=== PATIENT | male | born 1940 | race Caucasian/White ===

== ENCOUNTER 2023-10-30 14:27 | Day surgery (SDC) | payer MEDICARE, BC ==
[2023-10-30] MEDS ORDERED: Depo-Medrol 40 MG/ML IM ONE (14:28)
[2023-10-30] MEDS ORDERED: BUPIVACAINE 0.5% VIAL IJ ONE (14:28)
[2023-10-30] MEDS ORDERED: Lactated Ringers 1,000 ML IV ONE (17:07)
[2023-10-30] MEDS ORDERED: DIPRIVAN 200 MG/20 ML IV ONE (17:36)
--- NOTE | 2023-10-30 20:20 | XRAY ---
Indication: Bilateral SI joint injection Intraoperative fluoroscopy provided for 28 seconds. 6 digital spot image submitted for interpretation demonstrates posterior needle tip projecting over the left and right SI joint. Small amount of contrast injected for needle tip placement. Correlate with intraoperative findings/report. Incidental incompletely visualized bilateral lumbosacral fusion hardware.
--- NOTE | 2023-10-31 09:37 | XRAY ---
28 seconds of fluoroscopy was used in surgery for a bilateral sacroiliac joint injection.
== END 2023-10-30 18:05 | disposition home or self-care (01) ==
LOC: SDC-PAIN 14:27
PROVIDERS: ATTEND Psychiatry & Neurology Pain Medicine
DX: M46.1 Sacroiliitis, not elsewhere classified (principal)
CPT/HCPCS: 01992; 27096; 72202; 77002; 99100; G0260; J1030; J2704; Q9966

== ENCOUNTER 2024-01-16 11:37 | Day surgery (SDC) | payer MEDICARE, BC ==
[2024-01-16] MEDS ORDERED: Depo-Medrol 40 MG/ML IM ONE (11:38)
[2024-01-16] MEDS ORDERED: LIDOCAINE HCL 2% 100 MG/5 ML IJ ONE (11:38)
[2024-01-16] MEDS ORDERED: DIPRIVAN 200 MG/20 ML IV ONE (13:10)
[2024-01-16] MEDS ORDERED: Lactated Ringers 1,000 ML IV ONE (13:49)
--- NOTE | 2024-01-16 13:49 | XRAY ---
Indication: Bilateral L1-L3 MBB. Intraoperative fluoroscopy provided for 8 seconds. Single digital spot image submitted for interpretation demonstrates posterior needle tips projecting over the expected left and right L1-L3 nerve roots. Correlate with intraoperative findings/report. Incidental incompletely visualized multilevel lumbar fusion hardware
--- NOTE | 2024-01-16 14:32 | XRAY ---
8 seconds of fluoroscopy was used in surgery for a bilateral L1-L3 MBB.
== END 2024-01-16 13:38 | disposition home or self-care (01) ==
LOC: SDC-PAIN 11:37
PROVIDERS: ATTEND Psychiatry & Neurology Pain Medicine
DX: M47.816 Spondylosis without myelopathy or radiculopathy, lumbar region (principal)
CPT/HCPCS: 64493; 64494; 72020; 77002; J1010; J2704; J1030

== ENCOUNTER 2024-02-19 10:59 | Day surgery (SDC) | payer MEDICARE, BC ==
[2024-02-19] MEDS ORDERED: BUPIVACAINE 0.5% VIAL IJ ONE (11:00)
[2024-02-19] MEDS ORDERED: Depo-Medrol 40 MG/ML IM ONE (11:00)
[2024-02-19] MEDS ORDERED: DIPRIVAN 200 MG/20 ML IV ONE (12:31)
[2024-02-19] MEDS ORDERED: Lactated Ringers 1,000 ML IV ONE (13:13)
--- NOTE | 2024-02-19 15:04 | XRAY ---
Indication: Bilateral L1-L3 MBB. Intraoperative fluoroscopy provided for 16 seconds. Single digital spot image submitted for interpretation demonstrates posterior needle tips projecting over the expected left and right L1-L3 nerve roots. Correlate with intraoperative findings/report. Incidental incompletely visualized multilevel lumbar fusion hardware.
--- NOTE | 2024-02-19 17:10 | XRAY ---
16 seconds of fluoroscopy was used in surgery for a bilateral L1-L3 MBB.
== END 2024-02-19 13:05 | disposition home or self-care (01) ==
LOC: SDC-PAIN 10:59
PROVIDERS: ATTEND Psychiatry & Neurology Pain Medicine
DX: M47.816 Spondylosis without myelopathy or radiculopathy, lumbar region (principal)
CPT/HCPCS: 64493; 64494; 72020; 77002; J1010; J2704

== ENCOUNTER 2024-04-22 12:48 | Day surgery (SDC) | payer MEDICARE, BC ==
[2024-04-22] MEDS ORDERED: LIDOCAINE HCL 1% 50 MG/5 ML VL PF IJ ONE (12:49)
[2024-04-22] MEDS ORDERED: Depo-Medrol 40 MG/ML IM ONE (12:49)
[2024-04-22] MEDS ORDERED: BUPIVACAINE 0.5% VIAL IJ ONE (12:49)
[2024-04-22] MEDS ORDERED: DIPRIVAN 200 MG/20 ML IV ONE ×2 (13:33→14:03)
[2024-04-22] MEDS ORDERED: Lactated Ringers 1,000 ML IV ONE (14:07)
--- NOTE | 2024-04-22 16:38 | XRAY ---
Indication: Right L1-L3 RFA. Intraoperative fluoroscopy provided for 38 seconds. 8 digital spot images submitted for interpretation demonstrates posterior needle tips projecting over expected right L1-L3 nerve roots. Correlate with intraoperative findings/report. Incidental L1-L3 spinous process and incompletely visualized lower lumbar fusion hardware.
--- NOTE | 2024-04-22 17:16 | XRAY ---
38 seconds of fluoroscopy was used in surgery for a right L1-L3 RFA.
== END 2024-04-22 14:43 | disposition home or self-care (01) ==
LOC: SDC-PAIN 12:48
PROVIDERS: ATTEND Psychiatry & Neurology Pain Medicine
DX: M47.816 Spondylosis without myelopathy or radiculopathy, lumbar region (principal)
CPT/HCPCS: 64635; 64636; 72100; 77002; 99100; J2001; J2704

== ENCOUNTER 2024-04-29 10:33 | Day surgery (SDC) | payer MEDICARE, BC ==
[2024-04-29] MEDS ORDERED: LIDOCAINE HCL 1% 50 MG/5 ML VL PF IJ ONE (10:34)
[2024-04-29] MEDS ORDERED: BUPIVACAINE 0.5% VIAL IJ ONE (10:34)
[2024-04-29] MEDS ORDERED: Depo-Medrol 40 MG/ML IM ONE (10:34)
[2024-04-29] MEDS ORDERED: DIPRIVAN 200 MG/20 ML IV ONE (11:51)
[2024-04-29] MEDS ORDERED: Lactated Ringers 1,000 ML IV ONE (12:43)
--- NOTE | 2024-04-29 13:29 | XRAY ---
24 seconds of fluoroscopy was used in surgery for a left L1-L3 RFA.
--- NOTE | 2024-04-29 13:29 | XRAY ---
Indication: Left L1-L3 RFA. Intraoperative fluoroscopy provided for 24 seconds. 6 digital spot image submitted for interpretation demonstrates posterior needle tips projecting over the expected left L1-L3 nerve roots. Correlate with intraoperative findings/report. Incidental L1-L3 spinous process fusion hardware and incompletely visualized left epidural stimulator device/leads.
== END 2024-04-29 12:33 ==
LOC: SDC-PAIN 10:33
PROVIDERS: ATTEND Psychiatry & Neurology Pain Medicine
DX: M47.816 Spondylosis without myelopathy or radiculopathy, lumbar region (principal)
CPT/HCPCS: 64635; 64636; 72100; 77002; 99100; J2001; J2704